=== PATIENT | male | born 1995 | race African-American/Black ===

== ENCOUNTER 2017-04-16 19:15 | Emergency (ER) | payer BC ==
[~2017-04-16] VITALS: Ht 185.4 cm; Wt 68.0 kg
[2017-04-16] MEDS ORDERED: ONDANSETRON HCL 4MG/2ML VIAL IV STA (19:28)
[2017-04-16] MEDS ORDERED: SODIUM CHLORIDE 0.9% 1,000 ML IV ONE (19:28)
[2017-04-16] MEDS ORDERED: KETOROLAC 30MG/ML VIAL IV STA (19:28)
[2017-04-16 19:54] LABS: BASOPHILS % 0.8 % (0.0-2.0); EOSINOPHILS % 0.2 % (0.0-5.0); HEMATOCRIT. 42.6 % (42.0-52.0); HEMOGLOBIN. 14.1 g/dL (14.0-18.0); LYMPHOCYTES % 11.8 % (20.0-50.0); MEAN CORPUSCULAR VOLUME 90.8 fL (80.0-94.0); MONOCYTES % 7.1 % (2.0-8.0); NEUTROPHILS % 80.1 % (40.0-76.0); PLATELET 256 x1000/uL (130-400); RED BLOOD CELL COUNT 4.69 mill/uL (4.7-6.1); RED CELL DISTRIBUTION WIDTH 13.8 % (11.6-14.6)
[2017-04-16 19:59] LABS: CHLORIDE 102 mEq/L (98-107)
[2017-04-16 20:00] LABS: INR 1.1; PROTHROMBIN TIME 11.7 sec
[2017-04-16 20:05] LABS: CARBON DIOXIDE 17 mEq/L (21-32)
[2017-04-16] MEDS ORDERED: POTASSIUM CHLORIDE 20MEQ TABLET SR PO ONE (22:15)
[2017-04-16 23:40] VITALS: BP 122/66
== END 2017-04-16 23:41 | disposition home or self-care (01) ==
LOC: ER 20:31
DX: R55 Syncope and collapse (principal); R10.9 Unspecified abdominal pain; F12.10 Cannabis abuse, uncomplicated
CPT/HCPCS: 36415; 74176; 80053; 83690; 85025; 85610; 93005; 96361; 96374; 96375; 99285; J1885; J2405; J7030